=== PATIENT | female | born 2000 | race Caucasian/White ===

== ENCOUNTER 2019-03-28 21:24 | Emergency (ER) | payer BC ==
[~2019-03-28] VITALS: Ht 154.9 cm; Wt 54.4 kg
[2019-03-28 21:30] VITALS: BP 128/69
--- NOTE | 2019-03-28 21:32 | NUR ---
Pt sent to ER lobby to wait for ER bed.
--- NOTE | 2019-03-28 21:53 | NUR ---
PATIENT AMBULATED TO ER BED 8.
--- NOTE | 2019-03-28 21:55 | NUR ---
18/F PRESENTS TO ED, C/O POSSIBLE INGROWN HAIR/ABSCESS ON R GROIN, X3 DAYS. REPORTS ERYTHEMA AND SWELLING AROUND SITE. REPORTS THAT PT ATTEMPTED TO REMOVE HAIR, WHICH CAUSED PUS DRAINAGE. AOX4, SKIN NORMAL WARM AND DRY, RR EVEN AND UNLABORED. DENIES MED HX OR RX.
[2019-03-28] MEDS ORDERED: CLINDAMYCIN 150 MG CAP PO ONE (23:05)
[2019-03-28] MEDS ORDERED: KETOROLAC 60 MG/2 ML VIAL IM ONE (23:05)
[2019-03-28] MEDS ORDERED: SULFAMETH/TRIMETH DS 800/160MG 1 TAB PO ONE (23:05)
[2019-03-28 23:57] VITALS: BP 108/72
--- NOTE | 2019-03-28 23:57 | NUR ---
Patient discharged with v/s stable. Written and verbal after care instructions given and explained. Patient alert, oriented and verbalized understanding of instructions. Ambulatory with steady gait. All questions addressed prior to discharge. ID band removed. Patient advised to follow up with PMD. Rx of CLEOCIN 150MG, BACTRIM 800MG-160MG AND NORCO 5MG-325MG given. Patient educated on indication of medication including possible reaction and side effects. Opportunity to ask questions provided and answered.
== END 2019-03-28 23:57 | disposition home or self-care (01) ==
LOC: MED 21:24
DX: L02.234 Carbuncle of groin (principal); L03.314 Cellulitis of groin
CPT/HCPCS: 96372; 99283; J1885